=== PATIENT | male | born 1965 | race Caucasian/White ===

== ENCOUNTER 2022-08-17 06:00 | Day surgery (SDC) | payer BC ==
[~2022-08-17] VITALS: Ht 170.2 cm; Wt 68.0 kg
[2022-08-17] MEDS ORDERED: MIDAZOLAM HCL 5 MG/5 ML VIAL ONE (08:05)
[2022-08-17] MEDS ORDERED: fentaNYL CITRATE/PF 100 MCG/2 ML AMP ONE (08:05)
[2022-08-17] MEDS ORDERED: SIMETHICONE 40 MG/0.6 ML ML ONE (08:05)
[2022-08-17] MEDS ORDERED: BENZOCAINE 20% 0.5mL UD SPRAY MM ONE (08:41)
[2022-08-17 14:51] VITALS: BP_SYST 127
== END 2022-08-17 11:20 | disposition home or self-care (01) ==
LOC: SDS 06:00 → SMU 06:00 → SDS 11:20
PROVIDERS: ATTEND Internal Medicine
DX: Z12.11 Encounter for screening for malignant neoplasm of colon (principal); K63.5 Polyp of colon; K29.50 Unspecified chronic gastritis without bleeding; K29.80 Duodenitis without bleeding; K57.30 Diverticulosis of large intestine without perforation or abscess without bleeding; K64.8 Other hemorrhoids; K70.30 Alcoholic cirrhosis of liver without ascites; R19.4 Change in bowel habit; I12.0 Hypertensive chronic kidney disease with stage 5 chronic kidney disease or end stage renal disease; N18.6 End stage renal disease; K31.89 Other diseases of stomach and duodenum; I85.10 Secondary esophageal varices without bleeding; Z79.899 Other long term (current) drug therapy; Z20.822 Contact with and (suspected) exposure to COVID-19
CPT/HCPCS: 45385; 43239; 87426; 36415; 88305; 88312; 88313; 99152; 99153; G0378; J2250; J3010